=== PATIENT | female | born 1975 | race Caucasian/White ===

== ENCOUNTER → 2017-01-04 | Outpatient (REF) | payer OTHER, MEDICAID | LOC: M LAB REF 16:58 | PROVIDERS: ATTEND Advanced Practice Midwife | DX: O09.523 Supervision of elderly multigravida, third trimester (principal) ==

== ENCOUNTER 2017-01-15 14:26 | Inpatient (IN) | payer OTHER, MEDICAID ==
[2017-01-15] VITALS (10 sets, daily range): BP systolic 97–126; BP diastolic 55–74
[~2017-01-15] VITALS: Ht 152.4 cm; Wt 68.0 kg
[2017-01-15] MEDS ORDERED: TUMS500C PO (14:32)
[2017-01-15] MEDS ORDERED: PRENTAB9 PO (14:32)
[2017-01-15] MEDS ORDERED: miSOPROStol 50 MCG 1/2 TAB (S0191) PO SCH (15:30)
[2017-01-15 15:39] LABS: MEAN CORPUSCULAR HEMOGLOBIN 31.1 pg (27.0-33.0); MEAN CORPUSCULAR HGB CONC 34.2 g/dl (32.0-36.5); RED CELL DISTRIBUTION WIDTH 13.7 % (11.5-14.5); WHITE BLOOD COUNT 11.1 K/mm3 (4.0-10.0)
[2017-01-15] MEDS ORDERED: TERBUTALINE SULFATE 1 MG/ML VIAL (J3105) As Ordered ONE (16:57)
[2017-01-15] MEDS ORDERED: TERBUTALINE SULFATE 1 MG/ML VIAL (J3105) SC ONE (18:00)
[2017-01-15] MEDS ORDERED: LR 1,000 ML IV SCH (18:41)
[2017-01-15] MEDS ORDERED: OXYTOCIN DRIP 30 UNITS in APPROPRIATE DILUENT 1 EA IV SCH (18:45)
--- NOTE | 2017-01-15 18:59 | HPE ---
DATE OF ADMISSION: 01/15/2017 HISTORY: A 41-year-old 2, para 1 female at 39 and 0/7 weeks' gestation by 13-week ultrasound, estimated date of confinement (EDC) of 01/22/2017, presents for elective induction of labor. course is unremarkable. OBSTETRICAL HISTORY: December 2014: 39-week vaginal delivery of a 7 pound 7 ounce male . was complicated by gestational hypertension. SURGICAL HISTORY: Breast lump removed as teenager. ALLERGIES: No known drug allergies. SOCIAL HISTORY: Father of the baby is involved. The patient smokes cigarettes. She denies alcohol or drug use. FAMILY HISTORY: Noncontributory. PHYSICAL EXAMINATION: VITAL SIGNS: Blood pressure 120/66, weight 161. She is in no apparent distress. HEAD/NECK: Normal. LUNGS: Clear. HEART: Regular rate and rhythm. ABDOMEN: Nontender. Gravid. heart tones category one. Cervix 1-2 cm, 50% effaced, -2 station, vertex. LABORATORY DATA: Blood type O positive. Rubella immune. Rapid plasma reagin (RPR) nonreactive. Hepatitis B and C. HIV negative. Diabetes screen 107. GBS negative on 01/04/2017. ASSESSMENT: A 41-year-old 2, para 1, at 30-0/7 weeks' gestation by 13-week ultrasound with estimated date of confinement (EDC) of 01/22/2017, presents for labor induction. Risks of induction were discussed. The patient is admitted on 01/15/2017.
[2017-01-16] VITALS (56 sets, daily range): BP systolic 90–148; BP diastolic 51–80
[2017-01-16] MEDS ORDERED: FENTANYL 2MCG/ML ROPIVACAINE 0.2% NACL 250 ML CADD As Ordered ONE (06:28)
[2017-01-16] MEDS ORDERED: NALOXONE INJ 0.4 MG/1 ML VIAL (J2310) IV PRN (08:00)
[2017-01-16] MEDS ORDERED: EPIDURAL COMMENT XX SCH (08:00)
[2017-01-16] MEDS ORDERED: ePHEDrine SULFATE 25 MG/5 ML(5MG/ML) SYRINGE IV PRN (08:00)
[2017-01-16] MEDS ORDERED: LACTATED RINGER'S 1000 ML IV PRN (08:00)
[2017-01-16] MEDS ORDERED: FENTANYL/ROPIVACAINE/NACL CADD 250 ML EPIDURAL SCH (08:00)
[2017-01-16] MEDS ORDERED: ONDANSETRON 4MG/2ML VIAL (J2405) IV PRN ×2 (08:00→12:45)
[2017-01-16] MEDS ORDERED: REFRIGERATOR IV KEYS XX PRN (08:00)
[2017-01-16] MEDS ORDERED: diphenhydrAMINE INJ 50MG/ML VIAL (J1200) IV PRN (08:00)
[2017-01-16] MEDS ORDERED: EPIDURAL/PCA KEYS XX PRN (08:00)
[2017-01-16] MEDS ORDERED: DOCUSATE SODIUM 100 MG CAP PO PRN (12:45)
[2017-01-16] MEDS ORDERED: DIBUCAINE 1% OINTMENT 30GM TOP PRN (12:45)
[2017-01-16] MEDS ORDERED: MEASLES,MUMPS,RUBELLA VACCINE INJ (MMR-II) (90707) SC SCH (12:45)
[2017-01-16] MEDS ORDERED: RHOGAM 300 MCG (1500 IU) INJ (J2790) IM SCH (12:45)
[2017-01-16] MEDS ORDERED: OXYTOCIN DRIP 30 UNITS in APPROPRIATE DILUENT 1 EA IV ONE (12:45)
[2017-01-16] MEDS ORDERED: METHYLERGONOVINE MALEATE 0.2 MG TAB PO PRN (12:45)
[2017-01-16] MEDS ORDERED: ACETAMINOPHEN 500 MG TAB PO PRN (12:45)
--- NOTE | 2017-01-16 13:01 | DN ---
DATE: OF DELIVERY: 01/16/2017 PREDELIVERY DIAGNOSIS: 39 weeks. POST DELIVERY DIAGNOSIS: Delivered with placental abruption. PROCEDURE: Spontaneous vaginal delivery. TECHNOLOGY TRAINING ASSOCIATE: Darío Krueger MD ANESTHESIA: Epidural. ESTIMATED BLOOD LOSS: 300 mL. FINDINGS: 7 pounds 5 ounce male infant. Apgars 8 and 9. Moderate sized placental abruption noted at the edge of the placenta. DELIVERY SUMMARY: After a short second stage the patient spontaneously delivered a 7 pound 5 ounce male with epidural anesthesia. There was no nuchal cord. Shoulders delivered spontaneously. The infant was handed to the mother and cried spontaneously. The cord was doubly clamped and cut. The placenta delivered spontaneously and appeared to be intact. There was a moderately large blood clot noted behind the placenta at the time of delivery. The patient received IV pitocin immediately after delivery of the placenta. A small second degree perineal laceration was repaired with #2-0 chromic in the usual fashion. Sponge and needle counts were correct.
[2017-01-16] MEDS: IBUPROFEN 800 MG TAB PO PRN ×2 (14:19→20:48)
[2017-01-17] MEDS: IBUPROFEN 800 MG TAB PO PRN (05:36)
[2017-01-17 05:57] VITALS: BP 116/61
[2017-01-17] MEDS ORDERED: PRENATAL VITAMIN TAB PO SCH (09:00)
[2017-01-17] MEDS ORDERED: IBUP-1114 PO (15:34)
[2017-01-17] MEDS ORDERED: PRENTAB9 PO (15:34)
[2017-01-17] MEDS ORDERED: ACET50TA PO (15:34)
== END 2017-01-17 18:05 | disposition home or self-care (01) | DRG 560 ==
LOC: M LDI 14:26 → M OBS 01-16 14:41
PROVIDERS: ADMIT Specialist; ATTEND Specialist
PROC: 10E0XZZ Delivery of Products of Conception, External Approach (ICD-10-PCS; principal; 2017-01-16)
PROC: 0KQM0ZZ Repair Perineum Muscle, Open Approach (ICD-10-PCS; 2017-01-16)
DX: O99.334 Smoking (tobacco) complicating childbirth (principal); O09.523 Supervision of elderly multigravida, third trimester; Z37.0 Single live birth; Z3A.39 39 weeks gestation of pregnancy; F17.210 Nicotine dependence, cigarettes, uncomplicated; O70.1 Second degree perineal laceration during delivery; O45.93 Premature separation of placenta, unspecified, third trimester

== ENCOUNTER → 2017-03-25 | Day surgery (SDC) | payer OTHER, MEDICAID ==
[~2017-03-25] VITALS: Ht 152.4 cm; Wt 61.2 kg
[~2017-03-25] MED LIST: ACET50TA PO; GLYCOPYRROLATE INJ 0.2 MG/ML 2 ML VIAL As Ordered ONE; HYDROmorphone HCL 2 MG/ML 1ML VIAL (J1170) As Ordered ONE; IBUP-1114 PO; KETOROLAC 30 MG/ML VIAL (J1885) IV SCH; KETOROLAC 60 MG/2 ML VIAL (J1885) As Ordered ONE; LIDOCAINE 2% INJ 100 MG/5 ML SDV (FOR ANES.) As Ordered ONE; LR 1,000 ML IV ONE; LR 1,000 ML IV SCH; MIDAZOLAM INJ 2 MG/2 ML VIAL (J2250) As Ordered ONE; NEOSTIGMINE 1MG/ML 5 ML SYRINGE (J2710) As Ordered ONE; NO HOME MEDS; ONDANSETRON 4MG/2ML VIAL (J2405) As Ordered ONE; ONDANSETRON 4MG/2ML VIAL (J2405) IV PRN; PERCOCET 5MG/325MG TAB PO PRN; PRENTAB9 PO; PROPOFOL 200 MG/20 ML VIAL As Ordered ONE; ROCURONIUM BROMIDE 50 MG/5 ML VIAL As Ordered ONE; TUMS500C PO; dexameTHASONE 4 MG/ML 1ML VIAL (J1100) As Ordered ONE; fentaNYL 100 MCG/2 ML INJECTION (J3010) IV PRN; fentaNYL 250 MCG/5 ML INJECTION (J3010) As Ordered ONE
[2017-03-25 06:39] LABS: MEAN CORPUSCULAR HEMOGLOBIN 30.2 pg (27.0-33.0); MEAN CORPUSCULAR HGB CONC 32.7 g/dl (32.0-36.5); MEAN CORPUSCULAR VOLUME 92.3 fl (80.0-96.0); RED CELL DISTRIBUTION WIDTH 13.3 % (11.5-14.5); WHITE BLOOD COUNT 7.8 K/mm3 (4.0-10.0)
[2017-03-25 06:48] LABS: CONTROL LINE HCG INT CTR LINE PRESENT
[2017-03-25] MEDS: BUPIVACAINE HCL 0.25% 30 ML VIAL As Ordered ONE ×2 (08:00→08:10)
[2017-03-25 10:00] VITALS: BP 140/80
--- NOTE | 2017-03-26 06:27 | RO ---
DATE OF PROCEDURE: 03/25/2017 PREOPERATIVE DIAGNOSIS: Satisfied parity with undesired fertility. POSTOPERATIVE DIAGNOSIS: Satisfied parity with undesired fertility. PROCEDURE: Diagnostic laparoscopy with bilateral tubal ligation using Filshie clips. SURGEON: Tita Sheth MD CUTTING SUPERVISOR: COOPER Guajardo ANESTHESIA: General endotracheal anesthesia. ESTIMATED BLOOD LOSS: 5 mL. INTRAVENOUS FLUIDS: 1100 mL of lactated Ringer solution. URINE OUTPUT: 500 mL. SPECIMENS: None. PREOPERATIVE ANTIBIOTICS: None. OPERATIVE FINDINGS: Patient with normal appearing uterus, bilateral adnexa. Appendix was visualized, appeared to be normal. Normal appearing liver edge. DESCRIPTION OF OPERATION: After informed consent was obtained and written consent was reviewed, the patient was taken to the operating room where general endotracheal anesthesia was obtained. She was then placed in lithotomy position. She was prepped and draped in a normal sterile fashion. A time-out in the operating room was then performed, identifying the patient, procedure to be performed, as well as drug allergies. A bivalve speculum was then placed revealing the cervix. The anterior lip of the cervix was then grasped with a single-tooth tenaculum. A Hulka tenaculum was then advanced through the cervical os for means to manipulate the uterus. The single-tooth tenaculum as well as the speculum was removed. A Middleton catheter was then placed and set to gravity. Gloves were changed. Attention was turned to the patient's abdomen where 0.25% Marcaine was infused in the umbilical region. This area was incised and a 5 mm trocar and sleeve was advanced through this incision. The trocar was then removed. The laparoscope was then placed revealing intraabdominal placement. A pneumoperitoneum was then obtained with CO2 gas. The abdomen was then surveyed with above noted finding. A second port was then placed 2 cm above the pubis symphysis in the midline. This area was infused with 0.25% Marcaine. An incision was then made in this area and an 8 mm trocar and sleeve was advanced through this incision under direct visualization. Using a Filshie clip applicator, a Filshie clip was applied in the mid isthmus portion of the left fallopian tube with good blanching noted, and this was done after following out the fimbriated end of the fallopian tube. In a similar fashion, the right fallopian tube was followed out to the fimbriated end. A Filshie clip was then applied in the mid isthmus of this tube with good blanching noted. Instruments were then removed from the patient's abdomen. Pneumoperitoneum was then released. Trocars were removed. The incision were then closed with #4-0 Monocryl and was dressed with Dermabond. The Hulka tenaculum was then removed as well as the Middleton catheter. The patient was then taken out of lithotomy position, was awakened from general anesthesia and taken to recovery in stable condition.
== END | disposition home or self-care (01) ==
LOC: M SDC 06:12
PROVIDERS: ATTEND Obstetrics & Gynecology
DX: Z30.2 Encounter for sterilization (principal); K21.9 Gastro-esophageal reflux disease without esophagitis; F17.210 Nicotine dependence, cigarettes, uncomplicated
CPT/HCPCS: 36415; 58671; 84703; 85027; 86850; 86900; 86901; A4649; J1100; J1170; J1885; J2250; J2405; J2710; J3010

== ENCOUNTER → 2017-06-02 | Outpatient (CLI) | payer OTHER, MEDICAID ==
[~2017-06-02] MED LIST changes: -GLYCOPYRROLATE INJ 0.2 MG/ML 2 ML VIAL As Ordered ONE; -HYDROmorphone HCL 2 MG/ML 1ML VIAL (J1170) As Ordered ONE; -KETOROLAC 30 MG/ML VIAL (J1885) IV SCH; -KETOROLAC 60 MG/2 ML VIAL (J1885) As Ordered ONE; -LIDOCAINE 2% INJ 100 MG/5 ML SDV (FOR ANES.) As Ordered ONE; -LR 1,000 ML IV ONE; -LR 1,000 ML IV SCH; -MIDAZOLAM INJ 2 MG/2 ML VIAL (J2250) As Ordered ONE; -NEOSTIGMINE 1MG/ML 5 ML SYRINGE (J2710) As Ordered ONE; -ONDANSETRON 4MG/2ML VIAL (J2405) As Ordered ONE; -ONDANSETRON 4MG/2ML VIAL (J2405) IV PRN; -PERCOCET 5MG/325MG TAB PO PRN; -PROPOFOL 200 MG/20 ML VIAL As Ordered ONE; -ROCURONIUM BROMIDE 50 MG/5 ML VIAL As Ordered ONE; -dexameTHASONE 4 MG/ML 1ML VIAL (J1100) As Ordered ONE; -fentaNYL 100 MCG/2 ML INJECTION (J3010) IV PRN; -fentaNYL 250 MCG/5 ML INJECTION (J3010) As Ordered ONE
[2017-06-02 13:28] LABS: MEAN CORPUSCULAR HEMOGLOBIN 29.7 pg (27.0-33.0); MEAN CORPUSCULAR HGB CONC 32.6 g/dl (32.0-36.5); MEAN CORPUSCULAR VOLUME 91.1 fl (80.0-96.0); RED CELL DISTRIBUTION WIDTH 14.2 % (11.5-14.5); WHITE BLOOD COUNT 7.1 K/mm3 (4.0-10.0)
[2017-06-02 13:55] LABS: FREE T4 0.94 NG/DL (0.76-1.46)
== END ==
LOC: M SMT 08:58
PROVIDERS: ATTEND Obstetrics & Gynecology
DX: N92.0 Excessive and frequent menstruation with regular cycle (principal)

== ENCOUNTER 2019-04-26 09:50 | Emergency (ER) | payer OTHER ==
[~2019-04-26] VITALS: Ht 152.4 cm; Wt 63.5 kg
[~2019-04-26 09:50] MED LIST changes: -ACET50TA PO; +MAPA500T2 PO
[2019-04-26] MEDS ORDERED: ACETAMINOPHEN 500 MG TAB PO ONE (11:15)
[2019-04-26] MEDS ORDERED: METOCLOPRAMIDE 10 MG TAB PO ONE (11:15)
--- NOTE | 2019-04-26 11:57 | REP ---
CT Head without contrast HISTORY: Trauma COMPARISON: None There is no intraparenchymal hemorrhage, acute infarct, mass or midline shift. The ventricular system is normal in appearance. There is no extra cerebral collection. There is no fracture. The visualized sinuses are clear. IMPRESSION: There is no intracranial lesion. Electronically Signed by Darío Simon MD 04/26/2019 11:48 A
--- NOTE | 2019-04-26 12:00 | REP ---
CT cervical spine without contrast HISTORY: Trauma COMPARISON: None There is no acute fracture or subluxation. Disc bulges are present at the C2-3 through C5-6 levels. There is minimal narrowing of the spinal canal. The neural foramina are patent. The intervertebral discs and vertebral bodies are normal in height. IMPRESSION: 1. There is no acute fracture or subluxation. 2. There is cervical spondylosis at the C2-3 through C5-6 levels. Electronically Signed by Darío Simon MD 04/26/2019 11:51 A
[2019-04-26 12:17] VITALS: BP 122/75
[2019-04-26] MEDS ORDERED: MOBI4TAB PO (12:17)
[2019-04-26] MEDS ORDERED: ZANA4TAB PO (12:17)
== END 2019-04-26 12:28 | disposition home or self-care (01) ==
LOC: M ED 09:50
DX: S09.90XA Unspecified injury of head, initial encounter (principal); M54.2 Cervicalgia; M47.812 Spondylosis without myelopathy or radiculopathy, cervical region; V43.52XA Car driver injured in collision with other type car in traffic accident, initial encounter; Y92.9 Unspecified place or not applicable; Y93.9 Activity, unspecified; Y99.9 Unspecified external cause status; Z72.0 Tobacco use

== ENCOUNTER → 2020-09-26 | Outpatient (REF) | payer OTHER ==
[~2020-09-26] MED LIST changes: +MOBI4TAB PO; +ZANA4TAB PO
[2020-09-26 12:24] LABS: BASO # 0.1 10^3/uL (0.0-0.2); BASO % 0.7 % (0.0-1.0); EOS # 0.3 10^3/uL (0.0-0.5); EOS % 3.2 % (0.0-3.0); HEMATOCRIT 40.6 % (36.0-47.0); HEMOGLOBIN 12.9 g/dl (12.0-15.5); LYMPH # 2.8 10^3/uL (1.5-5.0); LYMPH % 33.4 % (24.0-44.0); MEAN CORPUSCULAR HEMOGLOBIN 29.1 pg (27.0-33.0); MEAN CORPUSCULAR HGB CONC 31.8 g/dl (32.0-36.5); MEAN CORPUSCULAR VOLUME 91.6 fl (80.0-96.0); MONO # 0.5 10^3/uL (0.0-0.8); MONO % 6.3 % (0.0-5.0); NEUTROPHILS # 4.8 10^3/uL (1.5-8.5); NEUTROPHILS % 56.2 % (36.0-66.0); PLATELET COUNT, AUTOMATED 319 10^3/uL (150-450); RED BLOOD COUNT 4.43 10^6/uL (4.00-5.40); WHITE BLOOD COUNT 8.5 10^3/uL (4.0-10.0)
[2020-09-26 13:05] LABS: ALBUMIN 3.8 GM/DL (3.2-5.2); ALT/SGPT 15 U/L (12-78); BILIRUBIN,TOTAL 0.4 MG/DL (0.2-1.0); BLOOD UREA NITROGEN 7 MG/DL (7-18); CALCIUM LEVEL 9.4 MG/DL (8.5-10.1); CARBON DIOXIDE LEVEL 28 MEQ/L (21-32); CHLORIDE LEVEL 107 MEQ/L (98-107); CHOLESTEROL LEVEL 179 MG/DL (<200); CHOLESTEROL RISK RATIO 3.977 (<5); CREATININE FOR GFR 0.62 MG/DL (0.55-1.30); FREE T4 0.89 NG/DL (0.76-1.46); GLOMERULAR FILTRATION RATE > 60.0 (>58); GLUCOSE, FASTING 85 MG/DL (70-100); HDL CHOLESTEROL 45 MG/DL (>40); LDL CHOLESTEROL 121 MG/DL (<100); NON-HDL-C 134 MG/DL; POTASSIUM SERUM 4.4 MEQ/L (3.5-5.1); SODIUM LEVEL 139 MEQ/L (136-145); TOTAL PROTEIN 6.9 GM/DL (6.4-8.2); TRIGLYCERIDES LEVEL 63 MG/DL (<150)
== END ==
LOC: M SFHCCLAY 08:15
PROVIDERS: ATTEND Physician Assistant
DX: F32.2 Major depressive disorder, single episode, severe without psychotic features (principal); F41.1 Generalized anxiety disorder; Z13.6 Encounter for screening for cardiovascular disorders

== ENCOUNTER → 2021-03-27 | Outpatient (CLI) | payer OTHER, MEDICAID | LOC: M PLALAB 08:34 | PROVIDERS: ATTEND Surgery | DX: Z13.79 Encounter for other screening for genetic and chromosomal anomalies (principal) ==

== ENCOUNTER → 2021-04-01 | Outpatient (CLI) | payer OTHER ==
[~2021-04-01] MED LIST changes: +HYDR-643 PO; +WELLTAB38 PO
[2021-04-01 18:02] VITALS: BP 122/72
--- NOTE | 2021-04-01 18:39 | REP ---
INDICATION: R92.8 ABN RIGHT BREAST/STERIO BX X 2/CK CLIP PLACEMT. COMPARISON: 03/13/2021. TECHNIQUE: ML and CC views right breast. FINDINGS: Two biopsy clips are placed in the upper right breast. IMPRESSION: Two biopsy clips are placed in the upper right breast. RECOMMENDATION: Clinical follow-up. <Electronically signed by Brendon Cisneros > 04/01/21 [id number]
--- NOTE | 2021-04-01 18:40 | REP ---
INDICATION: R92.8 ABN RIGHT BREAST/STERIO BX X 2/CK CLIP PLACEMT. COMPARISON: 03/13/2021. TECHNIQUE: Specimen radiographs are performed. FINDINGS: There are calcifications in the specimens. IMPRESSION: There are calcifications in the specimens. RECOMMENDATION: Clinical follow-up. <Electronically signed by Brendon Cisneros > 04/01/21 [id number]
--- NOTE | 2021-04-01 18:41 | REP ---
INDICATION: R92.8 ABN RIGHT BREAST/STERIO BX X 2/CK CLIP PLACEMT. COMPARISON: 03/13/2021. TECHNIQUE: Dr. Oropeza utilized stereotactic imaging for biopsy of the right breast. FINDINGS: Dr. Oropeza utilized stereotactic imaging for biopsy of the right breast. IMPRESSION: Dr. Oropeza utilized stereotactic imaging for biopsy of the right breast. RECOMMENDATION: Clinical follow-up. <Electronically signed by Brendon Cisneros > 04/01/21 [id number]
--- NOTE | 2021-04-04 08:23 | ROOPDOC ---
[facility] Report Of Operation Report of Operation DATE OF PROCEDURE: 04/01/21 DIAGNOSIS: Right breast suspicious calcifications PROCEDURE: Right breast stereotactic biopsy of 2 sites with 2 clips placement SURGEON: Zane Solomon BLOOD LOSS: minimal Lidocaine 1% LOT [id number] Expiration 02/2024 Sodium Bicarbonate 8.4% LOT [id number] Expiration 12/2021 ANTERIOR RIGHT BREAST BIOPSY Hydromark clip LOT [id number] Expiration 10/2023 SHAPE : 1 Bx device: Stereotactic Mammotome Revolve Dual Vacuum- assisted Biopsy System 10 G LOT [id number] Expiration 01/2024 REF [id number] POSTERIOR RIGH BREAST BIOPSY Hydromark clip [id number] Expiration 11/2023 SHAPE : 3 Bx device: Stereotactic Mammotome Revolve Dual Vacuum- assisted Biopsy System 10 G LOT [id number] Expiration 01/2024 REF [id number] Informed consent was obtained in the preop area. The most common risk and possible complications including bleeding, hematoma, bruising, infection, injury to surrounding structures were explained to the patient and patient expressed understanding. Patient was taken to the procedure room and placed prone on the [employer] [facility]one Breast Biopsy table with the right breast hanging through the table aperture. Right breast was placed into Latero-Medial compression and [employer] sherry images were taken. Suspicious calcifications extending 3 cm were identified on the sherry images and target was set. LM approach from the lateral aspect was chosen for this procedure. Since calcifications extending 3 cm, plan is to sample most anterior and most posterior aspect of calcifications. At this time, since we were able to confirm visibility of the suspicious calcifications and patient tolerated prone positioning allowing to proceed with the biopsy, appropriate time out was done stating patients name, date of , and the procedure to be performed. We started the procedure with sampling of the anterior calcifications. The right breast in LM compression was prepped in the usual fashion. Plain Lidocaine 1% and 8.4% sodium bicarbonate 10:1 mix was used to anesthetize the skin, the biopsy site and tissues along the anticipated biopsy tract. Small skin incision was made with blade number 11. Mammotome 10 G stereotactic breast biopsy device was inserted through the incision and advanced to the previously set coordinates marking the target lesion. Pre-fire imaging was taken to assure appropriate positioning. At this time, Mammotome 10 G breast biopsy device was fired and vacuum assisted biopsies were collected. The biopsy samples were investigated with F[employer] Imaging system and only one calcification was observed. At this time, since minimal calcifications were obtained in specimen, decision was made to retarget the calcifications and collect additional samples. With repeat biopsy samples, additional calcifications were seen in the specimen. This sampling was determined to be adequate and no additional sampling was required. Biopsy samples were then placed in the formaldehyde, marked with patients name and right breast ANTERIOR biopsy site, and sent to pathology for evaluation. SHAPE 1 Hydromark clip was placed into the Mammotome biopsy device channel and deployed. Post-deployment imaging was done to assure appropriate clip deployment. Clip was noted in the right breast. At this time, our attention was turned toward the posterior calcifications extent. Another target was set at the posterior calcification extent. Plain Lidocaine 1% and 8.4% sodium bicarbonate 10:1 mix was used to anesthetize the skin, the biopsy site and tissues along the anticipated biopsy tract. Small skin incision was made with blade number 11. Mammotome 10 G stereotactic breast biopsy device was inserted through the incision and advanced to the previously set coordinates marking the target lesion. Pre-fire imaging was taken to assure appropriate positioning. At this time, Mammotome 10 G breast biopsy device was fired and vacuum assisted biopsies were collected. The biopsy samples were investigated with Faxitron Imaging system and numerous calcifications were observed. Biopsy samples were then placed in the formaldehyde, marked with patients name and right breast POSTERIOR biopsy site, and sent to pathology for evaluation. SHAPE 3 Hydromark clip was placed into the Mammotome biopsy device channel and deployed. Post-deployment imaging was done to assure appropriate clip deployment. Clip was noted in the right posterior breast. At this point, paddle LM compression of the right breast was released and manual pressure was held to decrease harmonic effect and to assure hemostasis. No bleeding was noted upon removal of the pressure. Patient was slowly repositioned and placed into sitting position, and then assisted off the table. Post-biopsy mammogram of the right breast was obtained and showed two clips in expected position. Postprocedural dressing was placed. Patient tolerated procedure well and was taken to the recovery unit in stable condition. Discharge instructions were discussed with the patient and patient expressed understanding. ZANE SOLOMON DO April 04, 2021 08:23
== END ==
LOC: M WHCPRO 07:00
PROVIDERS: ATTEND Surgery
DX: C50.911 Malignant neoplasm of unspecified site of right female breast (principal); D05.11 Intraductal carcinoma in situ of right breast

== ENCOUNTER → 2021-04-17 | Outpatient (CLI) | payer OTHER ==
[~2021-04-17] MED LIST changes: +PROHANCE 279.3MG/ML 15ML VIAL As Ordered ONE
--- NOTE | 2021-04-21 10:06 | REP ---
INDICATION: INVASIVE DUCTAL CA RT BREAST. COMPARISON: Mammogram 03/13/2021 as well as other prior exams. TECHNIQUE: Three Violeta MRI imaging was performed with a dedicated breast coil. Axial, coronal, and sagittal T1 and T2 weighted scans were obtained with and without fat saturation in the usual fashion. The study includes dynamically acquired post gadolinium-enhanced imaging with image subtraction. Maximum intensity projection and multi planar reformation imaging is included as well. This study is interpreted with the aid of TriVascularD, an FDA approved computer aided detection (CAD) software program, on a dedicated breast MRI workstation. The gadolinium enhancement dose is 12 mL of intravenous ProHance. FINDINGS: There is moderate fibroglandular tissue symmetrically bilaterally. There is moderate background parenchymal enhancement. There is not significant cystic change in either breast. There is no significant axillary adenopathy bilaterally. There is a subcentimeter lymph node far posteriorly in the lower inner left breast. A biopsy clip is seen posteriorly at the 12 o'clock position of the right breast. More anteriorly and slightly more medially there is a 2nd biopsy clip. There is an area of lobulated hematoma/seroma between the clips measuring about 1.7 cm in diameter. On postcontrast images there is diffuse nodular suspicious enhancement between the biopsy clips. This abnormal enhancement extends slightly anterior to and medial to the more anterior biopsy clip. A focal 5 mm nodular area of suspicious enhancement is located approximately 1.6 cm lateral to the more anterior biopsy clip. A 5 mm ill-defined nodular area of suspicious enhancement is located about 1 cm superior to the more posterior clip. The entire area of suspicious enhancement measures approximately 1.7 x 3.7 x 2.5 cm. IMPRESSION: BI-RADS category 6 known right breast cancer. At the site of the recent biopsy in the upper aspect of the right breast there is an area of suspicious nodular enhancement as discussed in detail above, the entire area measures approximately 1.7 x 3.7 x 2.5 cm. <Electronically signed by Brendon Cisneros > 04/21/21 [id number]
== END ==
LOC: M RAD 15:12
PROVIDERS: ATTEND Surgery
DX: C50.911 Malignant neoplasm of unspecified site of right female breast (principal)
CPT/HCPCS: A9576; C8908

== ENCOUNTER → 2021-05-01 | Outpatient (CLI) | payer OTHER ==
[~2021-05-01] MED LIST changes: -PROHANCE 279.3MG/ML 15ML VIAL As Ordered ONE
== END ==
LOC: M LABSMTC 09:34
PROVIDERS: ATTEND Student in an Organized Health Care Education/Training Program
DX: Z20.828 Contact with and (suspected) exposure to other viral communicable diseases (principal); Z11.59 Encounter for screening for other viral diseases

== ENCOUNTER → 2021-07-30 | Outpatient (REF) | payer OTHER, MEDICARE ==
[~2021-07-30] MED LIST changes: +ACET-897 PO; +TAMO20TA8 PO
== END ==
LOC: M LAB REF 13:55
PROVIDERS: ATTEND Physician Assistant
DX: D22.5 Melanocytic nevi of trunk (principal)

== ENCOUNTER → 2021-09-30 | Outpatient (REF) | payer MEDICARE ==
[~2021-09-30] MED LIST changes: +SERT25TA21
== END ==
LOC: M SFHCWAGY 17:08
PROVIDERS: ATTEND Obstetrics & Gynecology
DX: Z12.4 Encounter for screening for malignant neoplasm of cervix (principal)
CPT/HCPCS: G0123; G0463

== ENCOUNTER → 2021-11-04 | Outpatient (REF) | payer OTHER, MEDICARE | LOC: M SFHCCAPE 10:31 | PROVIDERS: ATTEND Physician Assistant | DX: J40 Bronchitis, not specified as acute or chronic (principal); Z20.822 Contact with and (suspected) exposure to COVID-19 ==

== ENCOUNTER 2022-02-16 09:15 | Outpatient (RCR) | payer OTHER | END 2022-02-18 | LOC: M PT 09:15 | PROVIDERS: ATTEND Nurse Practitioner Family | DX: Z90.13 Acquired absence of bilateral breasts and nipples (principal); Z91.89 Other specified personal risk factors, not elsewhere classified ==

== ENCOUNTER 2022-02-23 09:25 | Outpatient (RCR) | payer OTHER ==
[~2022-02-23 09:25] MED LIST changes: -SERT25TA21; +SERT25TA21 PO
[2022-03-16] MEDS ORDERED: NICO14DI24 TD (11:52)
== END 2022-03-20 ==
LOC: M PT 09:25
PROVIDERS: ATTEND Nurse Practitioner Family
DX: Z90.13 Acquired absence of bilateral breasts and nipples (principal); C50.911 Malignant neoplasm of unspecified site of right female breast; Z91.89 Other specified personal risk factors, not elsewhere classified

== ENCOUNTER → 2022-03-22 | Outpatient (CLI) | payer OTHER ==
[~2022-03-22] MED LIST changes: +NICO14DI24 TD
== END ==
LOC: M LABSMTC 10:09
PROVIDERS: ATTEND Anesthesiology
DX: Z01.818 Encounter for other preprocedural examination (principal); Z11.52 Encounter for screening for COVID-19

== ENCOUNTER → 2022-05-19 | Outpatient (CLI) | payer OTHER | LOC: M WHC 09:59 | PROVIDERS: ATTEND Obstetrics & Gynecology | DX: N93.9 Abnormal uterine and vaginal bleeding, unspecified (principal) ==

== ENCOUNTER → 2022-09-16 | Outpatient (CLI) | payer OTHER ==
[~2022-09-16] MED LIST changes: +FLUO20CA22; +PROHANCE 279.3MG/ML 15ML VIAL As Ordered ONE
== END ==
LOC: M RAD 06:33
PROVIDERS: ATTEND Nurse Practitioner
DX: Z15.89 Genetic susceptibility to other disease (principal)
CPT/HCPCS: 74183; A9576

== ENCOUNTER → 2022-09-22 | Outpatient (REF) | payer OTHER ==
[~2022-09-22] MED LIST changes: -PROHANCE 279.3MG/ML 15ML VIAL As Ordered ONE
== END ==
LOC: M SFHCWAGY 16:58
PROVIDERS: ATTEND Obstetrics & Gynecology
DX: N93.9 Abnormal uterine and vaginal bleeding, unspecified (principal); Z12.4 Encounter for screening for malignant neoplasm of cervix; B37.9 Candidiasis, unspecified
CPT/HCPCS: 87624; 88305; G0123

== ENCOUNTER → 2022-09-23 | Outpatient (REF) | payer OTHER ==
[2022-09-23 17:34] LABS: BASO # 0.1 10^3/uL (0.0-0.2); BASO % 0.7 % (0.0-1.0); EOS # 0.2 10^3/uL (0.0-0.5); EOS % 2.7 % (0.0-3.0); HEMATOCRIT 39.1 % (36.0-47.0); HEMOGLOBIN 12.5 g/dl (12.0-15.5); LYMPH # 2.4 10^3/uL (1.5-5.0); LYMPH % 34.7 % (24.0-44.0); MEAN CORPUSCULAR HEMOGLOBIN 30.3 pg (27.0-33.0); MEAN CORPUSCULAR VOLUME 94.7 fl (80.0-96.0); MONO # 0.4 10^3/uL (0.0-0.8); NEUTROPHILS # 3.9 10^3/uL (1.5-8.5); NEUTROPHILS % 55.6 % (36.0-66.0); PLATELET COUNT, AUTOMATED 284 10^3/uL (150-450); RED BLOOD COUNT 4.13 10^6/uL (4.00-5.40)
[2022-09-23 17:58] LABS: ALBUMIN 3.5 GM/DL (3.2-5.2); ALT/SGPT 20 U/L (12-78); BILIRUBIN,TOTAL 0.4 MG/DL (0.2-1.0); BLOOD UREA NITROGEN 6 MG/DL (7-18); CALCIUM LEVEL 8.7 MG/DL (8.5-10.1); CARBON DIOXIDE LEVEL 27 MEQ/L (21-32); CHLORIDE LEVEL 108 MEQ/L (98-107); CHOLESTEROL LEVEL 176 MG/DL (<200); CHOLESTEROL RISK RATIO 3.591 (<5); CREATININE FOR GFR 0.63 MG/DL (0.55-1.30); GLOMERULAR FILTRATION RATE > 60.0 (>58); GLUCOSE, FASTING 87 MG/DL (70-100); HDL CHOLESTEROL 49 MG/DL (>40); LDL CHOLESTEROL 108 MG/DL (<100); NON-HDL-C 127 MG/DL; POTASSIUM SERUM 4.1 MEQ/L (3.5-5.1); SODIUM LEVEL 141 MEQ/L (136-145); TOTAL PROTEIN 6.5 GM/DL (6.4-8.2); TRIGLYCERIDES LEVEL 96 MG/DL (<150)
== END ==
LOC: M SFHCCAPE 08:30
PROVIDERS: ATTEND Physician Assistant
DX: F41.1 Generalized anxiety disorder (principal); Z13.6 Encounter for screening for cardiovascular disorders

== ENCOUNTER → 2022-09-24 | Outpatient (CLI) | payer OTHER ==
[~2022-09-24] MED LIST changes: +ISOVUE-370 76% 100ML VIAL As Ordered ONE
== END ==
LOC: M RAD 08:39
PROVIDERS: ATTEND Nurse Practitioner
DX: Z85.3 Personal history of malignant neoplasm of breast (principal)
CPT/HCPCS: 71260; Q9967

== ENCOUNTER → 2022-11-25 | Outpatient (CLI) | payer OTHER ==
[~2022-11-25] MED LIST changes: +GASTROGRAFIN SOLUTION 30ML As Ordered ONE
== END ==
LOC: M RAD 12:40
PROVIDERS: ATTEND Nurse Practitioner
DX: C50.919 Malignant neoplasm of unspecified site of unspecified female breast (principal)

== ENCOUNTER → 2023-06-03 | Outpatient (CLI) | payer OTHER ==
[~2023-06-03] MED LIST changes: +BUPR150T12; -GASTROGRAFIN SOLUTION 30ML As Ordered ONE; -ISOVUE-370 76% 100ML VIAL As Ordered ONE
== END ==
LOC: M RAD 14:06
PROVIDERS: ATTEND Internal Medicine Medical Oncology
DX: N93.9 Abnormal uterine and vaginal bleeding, unspecified (principal); D25.9 Leiomyoma of uterus, unspecified

== ENCOUNTER → 2024-02-02 | Outpatient (REF) | payer OTHER ==
[~2024-02-02] MED LIST changes: -BUPR150T12; +BUPR150T12 PO; +FLUO40CA PO; +OMEP-173 PO
[2024-02-02 18:15] LABS: BASO # 0.1 10^3/uL (0.0-0.2); BASO % 0.7 % (0.0-1.0); EOS # 0.1 10^3/uL (0.0-0.5); EOS % 0.9 % (0.0-3.0); HEMATOCRIT 39.3 % (36.0-47.0); HEMOGLOBIN 12.6 g/dl (12.0-15.5); LYMPH # 3.5 10^3/uL (1.5-5.0); LYMPH % 34.3 % (24.0-44.0); MEAN CORPUSCULAR HEMOGLOBIN 29.4 pg (27.0-33.0); MEAN CORPUSCULAR HGB CONC 32.1 g/dl (32.0-36.5); MEAN CORPUSCULAR VOLUME 91.6 fl (80.0-96.0); MONO # 0.5 10^3/uL (0.0-0.8); NEUTROPHILS # 6.1 10^3/uL (1.5-8.5); NEUTROPHILS % 58.7 % (36.0-66.0); PLATELET COUNT, AUTOMATED 327 10^3/uL (150-450); RED BLOOD COUNT 4.29 10^6/uL (4.00-5.40); WHITE BLOOD COUNT 10.3 10^3/uL (4.0-10.0)
[2024-02-02 18:34] LABS: ALBUMIN 3.8 G/DL (3.2-5.2); ALKALINE PHOSPHATASE 51 U/L (46-116); ALT/SGPT 13 U/L (7.0-40); AST/SGOT 19 U/L (<34); BILIRUBIN,TOTAL 0.3 MG/DL (0.3-1.2); BLOOD UREA NITROGEN 11 MG/DL (9-23); CALCIUM LEVEL 9.2 MG/DL (8.5-10.1); CARBON DIOXIDE LEVEL 28 MMOL/L (20-31); CHLORIDE LEVEL 104 MMOL/L (98-107); CREATININE FOR GFR 0.63 MG/DL (0.55-1.30); GLOMERULAR FILTRATION RATE > 60.0 (>58); GLUCOSE, FASTING 95 MG/DL (60-100); POTASSIUM SERUM 4.1 MMOL/L (3.5-5.1); SODIUM LEVEL 136 MMOL/L (136-145); TOTAL PROTEIN 6.6 G/DL (5.7-8.2)
== END ==
LOC: M SFHCCLAY 11:51
PROVIDERS: ATTEND Physician Assistant Medical
DX: K21.9 Gastro-esophageal reflux disease without esophagitis (principal); F41.1 Generalized anxiety disorder; Z01.818 Encounter for other preprocedural examination

== ENCOUNTER 2024-02-24 12:19 | Day surgery (SDC) | payer OTHER ==
[~2024-02-24] VITALS: Ht 149.9 cm; Wt 69.0 kg
[~2024-02-24 12:19] MED LIST changes: +OMEP40CA4 PO; +ceFAZolin SOD 2 GM in IV 1 EA IV ONE
[2024-02-24] MEDS ORDERED: LR 1,000 ML IV SCH (12:40)
[2024-02-24] MEDS ORDERED: LIDOCAINE 2% 100MG/5ML SDV (FOR ANES.) As Ordered ONE (12:51)
[2024-02-24] MEDS ORDERED: propofoL 200 MG/20 ML VIAL As Ordered ONE (12:51)
[2024-02-24] MEDS ORDERED: MIDAZOLAM INJ 2MG/2ML VIAL As Ordered ONE (12:51)
[2024-02-24] MEDS ORDERED: ROCURONIUM BROMIDE 50MG/5ML VIAL As Ordered ONE (12:51)
[2024-02-24] MEDS ORDERED: fentaNYL 100 MCG/2 ML INJECTION As Ordered ONE (12:52)
[2024-02-24 13:04] LABS: HEMATOCRIT 41.1 % (36.0-47.0); HEMOGLOBIN 13.4 g/dl (12.0-15.5); MEAN CORPUSCULAR HGB CONC 32.6 g/dl (32.0-36.5); MEAN CORPUSCULAR VOLUME 91.9 fl (80.0-96.0); PLATELET COUNT, AUTOMATED 317 10^3/uL (150-450); RED BLOOD COUNT 4.47 10^6/uL (4.00-5.40); WHITE BLOOD COUNT 13.4 10^3/uL (4.0-10.0)
[2024-02-24] MEDS ORDERED: PHENYLephrine 500MCG 5ML (100MCG/ML) SYRINGE As Ordered ONE (14:23)
[2024-02-24] MEDS ORDERED: ePHEDrine SULFATE 25 MG/5 ML(5MG/ML) SYRINGE As Ordered ONE (14:23)
[2024-02-24] MEDS ORDERED: ONDANSETRON 4MG 2ML VIAL As Ordered ONE (14:26)
[2024-02-24] MEDS ORDERED: dexmedeTOMIDine (4MCG/ML)200MCG/50ML BTL (PRECEDEX) As Ordered ONE (14:40)
[2024-02-24] MEDS ORDERED: SUGAMMADEX SODIUM 500 MG/5 ML VIAL (BRIDION) As Ordered ONE (14:45)
[2024-02-24] MEDS ORDERED: ACETAMINOPHEN 1000MG 100ML IV BAG As Ordered ONE (14:51)
[2024-02-24] MEDS ORDERED: HYDROmorphone HCL 2MG/ML 1ML VIAL As Ordered ONE (14:55)
[2024-02-24] MEDS ORDERED: METHYLENE BLUE 0.5% (5MG/ML) 10 ML AMP (PROVAYBLUE) As Ordered ONE (15:56)
[2024-02-24] MEDS ORDERED: fentaNYL 100 MCG/2 ML INJECTION IV PRN (16:35)
[2024-02-24] MEDS ORDERED: ONDANSETRON 4MG 2ML VIAL IV PRN (16:35)
[2024-02-24] MEDS ORDERED: MORPHINE 2 MG/ML 1ML VIAL IV PRN (16:35)
[2024-02-24] MEDS: oxyCODONE 5MG TAB PO PRN (17:05)
[2024-02-24 17:50] VITALS: BP 141/72; TEMP 97.9; O2SAT 97
== END 2024-02-24 17:57 | disposition home or self-care (01) ==
LOC: M SDC 12:19
PROVIDERS: ATTEND Obstetrics & Gynecology
DX: D25.1 Intramural leiomyoma of uterus (principal); D25.2 Subserosal leiomyoma of uterus; N87.9 Dysplasia of cervix uteri, unspecified; N93.9 Abnormal uterine and vaginal bleeding, unspecified; N83.12 Corpus luteum cyst of left ovary; N83.11 Corpus luteum cyst of right ovary; N83.292 Other ovarian cyst, left side; N83.291 Other ovarian cyst, right side; N88.8 Other specified noninflammatory disorders of cervix uteri; Z98.51 Tubal ligation status; Z85.3 Personal history of malignant neoplasm of breast; Z92.21 Personal history of antineoplastic chemotherapy; Z79.899 Other long term (current) drug therapy; F17.210 Nicotine dependence, cigarettes, uncomplicated; Z79.810 Long term (current) use of selective estrogen receptor modulators (SERMs); K21.9 Gastro-esophageal reflux disease without esophagitis
CPT/HCPCS: 36415; 58571; 81025; 85027; 86850; 86900; 86901; 88307; J0131; J0665; J1100; J1170; J2250; J2371; J2405; J3010; Q9968; S2900

== ENCOUNTER → 2024-09-25 | Outpatient (CLI) | payer OTHER ==
[~2024-09-25] MED LIST changes: +FLUO-365; -FLUO20CA22; -ceFAZolin SOD 2 GM in IV 1 EA IV ONE
== END ==
LOC: M RAD 10:20
PROVIDERS: ATTEND Internal Medicine Medical Oncology
DX: Z85.3 Personal history of malignant neoplasm of breast (principal); N28.1 Cyst of kidney, acquired

== ENCOUNTER → 2024-10-05 | Outpatient (CLI) | payer OTHER | LOC: M RAD 10:11 | PROVIDERS: ATTEND Internal Medicine Medical Oncology | DX: C50.919 Malignant neoplasm of unspecified site of unspecified female breast (principal) | CPT/HCPCS: 78306; A9503 ==

== ENCOUNTER → 2024-12-20 | Outpatient (REF) | payer OTHER ==
[2024-12-20 12:40] LABS: ALKALINE PHOSPHATASE 75 U/L (35-104); ALT/SGPT 13 U/L (7.0-40); AST/SGOT 14 U/L (<34); BILIRUBIN,TOTAL 0.4 MG/DL (0.3-1.2); BLOOD UREA NITROGEN 7 MG/DL (9-23); CALCIUM LEVEL 9.7 MG/DL (8.5-10.1); CARBON DIOXIDE LEVEL 28 MMOL/L (20-31); CHLORIDE LEVEL 106 MMOL/L (98-107); CHOLESTEROL LEVEL 204 MG/DL (<200); CHOLESTEROL RISK RATIO 3.93 (<5); CREATININE FOR GFR 0.64 MG/DL (0.55-1.30); GLOMERULAR FILTRATION RATE > 60.0 (>58); GLUCOSE, FASTING 86 MG/DL (60-100); HDL CHOLESTEROL 51.9 MG/DL (>40); LDL CHOLESTEROL 129.5 MG/DL (<100); NON-HDL-C 152.1 MG/DL; POTASSIUM SERUM 4.2 MMOL/L (3.5-5.1); SODIUM LEVEL 141 MMOL/L (136-145); TRIGLYCERIDES LEVEL 113 MG/DL (<150)
[2024-12-20 12:42] LABS: FREE T4 1.14 NG/DL (0.89-1.76); THYROID STIMULATING HORMONE 1.242 uIU/ML (0.55-4.78)
== END ==
LOC: M SFHCCLAY 09:05
PROVIDERS: ATTEND Nurse Practitioner Family
DX: F41.1 Generalized anxiety disorder (principal); F32.2 Major depressive disorder, single episode, severe without psychotic features; K21.9 Gastro-esophageal reflux disease without esophagitis; I51.7 Cardiomegaly; Z12.11 Encounter for screening for malignant neoplasm of colon

== ENCOUNTER → 2025-01-28 | Outpatient (CLI) | payer OTHER ==
[~2025-01-28] MED LIST changes: +ANAS1TAB2 PO; +CALC1TAB42 PO; +CALCD50TA PO
== END ==
LOC: M WHC 09:39
PROVIDERS: ATTEND Internal Medicine Hematology & Oncology
DX: Z13.820 Encounter for screening for osteoporosis (principal); Z85.3 Personal history of malignant neoplasm of breast

== ENCOUNTER → 2025-09-03 | Outpatient (REF) | payer OTHER ==
[~2025-09-03] MED LIST changes: +EXEM25TA PO
== END ==
LOC: M SFHCCLAY 09:14
PROVIDERS: ATTEND Nurse Practitioner Family
DX: F41.1 Generalized anxiety disorder (principal); F32.2 Major depressive disorder, single episode, severe without psychotic features; K21.9 Gastro-esophageal reflux disease without esophagitis; I51.7 Cardiomegaly; Z85.3 Personal history of malignant neoplasm of breast; F17.210 Nicotine dependence, cigarettes, uncomplicated

== ENCOUNTER → 2025-09-04 | Outpatient (REF) | payer OTHER ==
[2025-09-04 10:43] LABS: ALT/SGPT 11 U/L (7.0-40); AST/SGOT 15 U/L (<34); CALCIUM LEVEL 9.4 MG/DL (8.5-10.1); CARBON DIOXIDE LEVEL 27 MMOL/L (20-31); CHLORIDE LEVEL 106 MMOL/L (98-107); CHOLESTEROL LEVEL 199 MG/DL (<200); CHOLESTEROL RISK RATIO 4.11 (<5); CREATININE FOR GFR 0.58 MG/DL (0.55-1.30); GLOMERULAR FILTRATION RATE > 90.0 (>58); LDL CHOLESTEROL 129.2 MG/DL (<100); NON-HDL-C 150.6 MG/DL; POTASSIUM SERUM 4.1 MMOL/L (3.5-5.1); SODIUM LEVEL 142 MMOL/L (136-145); TRIGLYCERIDES LEVEL 107 MG/DL (<150)
== END ==
LOC: M LAB REF 09:57
PROVIDERS: ATTEND Nurse Practitioner Family
DX: F41.1 Generalized anxiety disorder (principal); F32.2 Major depressive disorder, single episode, severe without psychotic features; K21.9 Gastro-esophageal reflux disease without esophagitis; I51.7 Cardiomegaly; Z85.3 Personal history of malignant neoplasm of breast; F17.210 Nicotine dependence, cigarettes, uncomplicated